=== PATIENT | male | born 1935 | race Caucasian/White ===

== ENCOUNTER 2016-09-27 08:47 | Day surgery (SDC) | payer OTHER, BC ==
[~2016-09-27] VITALS: Ht 170.2 cm; Wt 79.0 kg
[~2016-09-27 08:47] MED LIST: CALCIUM ACETAT667 MG PO; COREG12.5 M1 PO; DOXYCYCLINE HY100 MG PO; KAYEXALATE15 GM/60 M PO; LO-DOSE ASPIRIN81 M2 PO; NIFEDIPINE ER60 MG PO; OMEPRAZOLE40 M1 PO; RENA-VITE RX T1 EACH PO; RENAL CAPS SOFTG1 MG PO; ZYRTEC10 M3 PO
[2016-09-27 10:57] LABS: METH RESISTANT S AUREUS PCR NEGATIVE (NEGATIVE)
[2016-09-27 11:03] LABS: PROBE CHECK PASS; SPECIMEN PROCESSING CONTROL PASS
== END 2016-09-27 11:01 | disposition home or self-care (01) ==
LOC: CATH 08:47
PROVIDERS: Surgery
DX: T82.858A Stenosis of other vascular prosthetic devices, implants and grafts, initial encounter (principal); Y83.2 Surgical operation with anastomosis, bypass or graft as the cause of abnormal reaction of the patient, or of later complication, without mention of misadventure at the time of the procedure; I12.0 Hypertensive chronic kidney disease with stage 5 chronic kidney disease or end stage renal disease; N18.6 End stage renal disease; Z99.2 Dependence on renal dialysis; M19.90 Unspecified osteoarthritis, unspecified site; Z85.828 Personal history of other malignant neoplasm of skin; Z88.1 Allergy status to other antibiotic agents
CPT/HCPCS: 87641; C1725; C1769; C1894; J1644; J2250; J3010

== ENCOUNTER 2017-07-04 07:31 | Day surgery (SDC) | payer OTHER, BC ==
[~2017-07-04] VITALS: Ht 167.6 cm; Wt 77.0 kg
== END 2017-07-04 09:10 | disposition home or self-care (01) ==
LOC: CATH 07:31
PROC: 057Y3ZZ Dilation of Upper Vein, Percutaneous Approach (ICD-10-PCS; principal; 2017-07-04)
DX: T82.858A Stenosis of other vascular prosthetic devices, implants and grafts, initial encounter (principal); N18.6 End stage renal disease; Z99.2 Dependence on renal dialysis; Z85.828 Personal history of other malignant neoplasm of skin
CPT/HCPCS: 87641; C1725; C1769; C1894; J1644; J2250; J3010

== ENCOUNTER 2017-12-26 07:37 | Day surgery (SDC) | payer OTHER, BC ==
[~2017-12-26] VITALS: Ht 167.6 cm; Wt 74.0 kg
== END 2017-12-26 10:06 | disposition home or self-care (01) ==
LOC: CATH 07:37
PROC: B51W1ZZ Fluoroscopy of Dialysis Shunt/Fistula using Low Osmolar Contrast (ICD-10-PCS; principal; 2017-12-26)
PROC: 3E03317 Introduction of Other Thrombolytic into Peripheral Vein, Percutaneous Approach (ICD-10-PCS; principal; 2017-12-26)
PROC: 057Y3DZ Dilation of Upper Vein with Intraluminal Device, Percutaneous Approach (ICD-10-PCS; principal; 2017-12-26)
PROC: 05HY33Z Insertion of Infusion Device into Upper Vein, Percutaneous Approach (ICD-10-PCS; principal; 2017-12-26)
DX: T82.858A Stenosis of other vascular prosthetic devices, implants and grafts, initial encounter (principal); Y83.2 Surgical operation with anastomosis, bypass or graft as the cause of abnormal reaction of the patient, or of later complication, without mention of misadventure at the time of the procedure; N18.6 End stage renal disease; Z99.2 Dependence on renal dialysis; Z85.820 Personal history of malignant melanoma of skin
CPT/HCPCS: 87641; C1725; C1769; C1874; C1894; J1644; J2250; J3010